=== PATIENT | female | born 2000 | race American Indian/Alaskan Native ===

== ENCOUNTER 2020-11-08 12:35 | Emergency (ER) | payer OTHER ==
[2020-11-08 12:46] VITALS: BP 107/74; PULSE 75; TEMP 98; BMI 30.7
[2020-11-08] MEDS ORDERED: LIDOCAINE HCL 1%, 10 MG/ML (20ML VIAL) ONE (14:13)
== END 2020-11-08 15:12 | disposition home or self-care (01) ==
LOC: JERFT 12:35
DX: S00.452A Superficial foreign body of left ear, initial encounter (principal)
CPT/HCPCS: 99282-25

== ENCOUNTER 2020-11-10 09:01 | Emergency (ER) | payer OTHER ==
[2020-11-10 09:08] VITALS: BP 111/71; PULSE 73; TEMP 97.7; BMI 30.2
[2020-11-10] MEDS ORDERED: BACITRACIN 15 GM TUBE TOPICAL OINTMENT ONE (09:14)
== END 2020-11-10 09:48 | disposition home or self-care (01) ==
LOC: JERFT 09:01
DX: Z48.00 Encounter for change or removal of nonsurgical wound dressing (principal)
CPT/HCPCS: 99281-25